=== PATIENT | male | born 1995 | race Caucasian/White ===

== ENCOUNTER 2018-05-04 23:15 | Emergency (ER) | payer OTHER ==
[2018-05-04] MEDS ORDERED: fentaNYL* 50 MCG/ML 2 ML VIAL (100 MCG VIAL) IV SLOW PU ONE (23:29)
[2018-05-04] MEDS ORDERED: NS 0.9% 1000 ML* 1,000 ML IV ONE (23:30)
[2018-05-04] MEDS ORDERED: Metoclopramide IV* 5 MG/ML 2 ML VIAL IV SLOW PU ONE (23:31)
[2018-05-04] MEDS ORDERED: Tetan/Diph/Pertus SYR(Tdap)* 0.5 ML SYR(BOOSTRIX) use SYR IM ONE (23:31)
[2018-05-04] MEDS ORDERED: ceFAZolin 1 GM in Dextrose (*) 1 GM/50 ML BAG IVPB ONE (23:31)
[2018-05-04] MEDS ORDERED: Lidocaine 2% EPI 1:200000 MPF*10-20 ML VIAL ONE (23:49)
[2018-05-05 00:36] LABS: ABS Basophils 0 10^3/ul (0-0.2); ABS Eosinophils 0.3 10^3/ul (0-0.6); ABS Lymphocytes 2.5 10^3/ul (1.0-4.8); ABS Monocytes 0.4 10^3/ul (0-0.8); ABS Neutrophils 5.4 10^3/ul (1.5-7.7); ABS Nucleated RBC 0 10^3/ul; Eosinophil % 3.9 % (0-6); Hematocrit 45 % (42-52); Hemoglobin 14.9 g/dl (14.0-18.0); Lymphocyte % 28.6 % (25-47); Mean Corpuscular HGB Conc 33 g/dl (31-36); Mean Corpuscular Hemoglobin 30 pg (27-31); Mean Corpuscular Volume 91 fL (80-94); Mean Platelet Volume 7.2 um3 (7.4-10.4); Nucleated Red Blood Cells % 0.1; Platelet Count 286 10^3/ul (150-450); Red Cell Distribution Width 13 % (10.5-15); White Blood Count 8.6 10^3/ul (3.5-10.8)
[2018-05-05 00:40] LABS: INR 0.88 (0.77-1.02)
[2018-05-05 00:47] LABS: EGFR Non-African American 91.3 (>60)
[2018-05-05 01:19] VITALS: BP 122/68
--- NOTE | 2018-05-05 01:26 | ED ---
iGfty Lemon Elizabeth, scribed for Rahul Mathis MD on 05/04/18 at 2338 . Laceration/Wound HPI - HPI Summary HPI Summary: This patient is a 22 year old M presenting to [facility] with a chief complaint of pain and laceration in his left axilla since earlier tonight. The patient reports that he fell on a steel fence post. The patient rates the pain 7/10 in severity. Symptoms aggravated by movement. Symptoms alleviated by compression. Patient denies numbness or tingling in his left arm. - History of Current Complaint Stated Complaint: LEFT ARM INJURY Time Seen by Provider: 05/04/18 23:24 Hx Obtained From: Patient Mechanism of Injury: Sharp/Blunt Trauma Onset/Duration: Sudden Onset, Lasting Minutes, Still Present Aggravating: Movement Alleviating: Compression Onset Severity: Moderate Current Severity: Moderate Pain Intensity: 7 Pain Scale Used: 0-10 Numeric Associated Signs & Symptoms: Negative - negative tingling or numbness in left arm - Allergy/Home Medications Allergies/Adverse Reactions: Allergies Allergy/AdvReac Type Severity Reaction Status Date / Time amoxicillin Allergy Hives Verified 05/04/18 23:20 PMH/Surg Hx/FS Hx/Imm Hx Endocrine/Hematology History: Denies: Hx Diabetes Respiratory History: Denies: Hx Chronic Obstructive Pulmonary Disease (COPD) Opthamlomology History: Denies: Hx Legally Blind EENT History: Denies: Hx Deafness Infectious Disease History: No Infectious Disease History: Denies: Traveled Outside the [place] in Last 30 Days - Family History Known Family History: Positive: None Review of Systems Negative: Fever Negative: Epistaxis Negative: Cough Positive: Arthralgia - pain in axilla Skin: Other - laceration to left axilla All Other Systems Reviewed And Are Negative: Yes Physical Exam - Summary Physical Exam Summary: VITAL SIGNS: Reviewed. GENERAL: Patient is a well-developed and nourished MALE who is lying comfortable in the stretcher. Patient is not in any acute respiratory distress. HEAD AND FACE: No signs of trauma. No ecchymosis, hematomas or skull depressions. No sinus tenderness. EYES: PERRLA, EOMI x 2, No injected conjunctiva, no nystagmus. EARS: Hearing grossly intact. Ear canals and tympanic membranes are within normal limits. MOUTH: Oropharynx within normal limits. NECK: Supple, trachea is midline, no adenopathy, no JVD, no carotid bruit, no c- spine tenderness, neck with full ROM. CHEST: Symmetric, no tenderness at palpation LUNGS: Clear to auscultation bilaterally. No wheezing or crackles. CVS: Regular rate and rhythm, S1 and S2 present, no murmurs or gallops appreciated. ABDOMEN: Soft, non-tender. No signs of distention. No rebound no guarding, and no masses palpated. Bowel sounds are normal. EXTREMITIES: FROM in all major joints, no edema, no cyanosis or clubbing. NEURO: Alert and oriented x 3. No acute neurological deficits. Speech is normal and follows commands. Sensory and motor neuro exam intact in LUE, good radial and distal pulses SKIN: Dry and warm, 3 inches wide L-shaped lac over the left axilla, deep to the muscles, minimal to moderate bleeding Triage Information Reviewed: Yes Vital Signs On Initial Exam: Initial Vitals Temp Pulse Resp BP Pulse Ox 97.9 F 114 20 103/73 98 05/04/18 23:19 05/04/18 23:19 05/04/18 23:19 05/04/18 23:19 05/04/18 23:19 Vital Signs Reviewed: Yes Procedures - Procedure Summary Procedure Summary: Laceration repair to left axilla. Prior to procedure sensory and motor neuro exam intact with good radial and distal pulses. No foreign body was seen. 3 inch irregular laceration was closed using 2% Lido with Epi and 2 layers of sutures. The inner layer of 5 sutures was done with polysorb 3-0 and the outer layer of 10 sutures was done with 3-0 prolene. The sutures were dressed with bacitracin and an emory bandage. Sensory and motor neuro exam intact post- procedure. - Laceration/Wound Repair #1 Location: upper extremity - left axilla Description: Irregular Anesthesia: 2.0%, Lido, Epi Length, Depth and Shape: 3 inches Irrigated w/ Saline (ccs): 100 Laceration/Wound Explored: clean, no foreign body removed - nmo foreign Closure: Multilayer - 2 layers (10 sutures inner layer, 5 sutures outer layer) Suture Type: Prolene - 3-0, on outer layer, 10 sutures, Other - polysorb 3-0 on inner layer (5 sutures) Number of Sutures: 10 - 10 outer layer, 5 inner layer Layer Closure?: Yes - bacitracin, emory bandage Sterile Dressing Applied?: Yes Diagnostics - Vital Signs Vital Signs Temp Pulse Resp BP Pulse Ox 05/04/18 23:19 97.9 F 114 20 103/73 98 - Laboratory Result Diagrams: 05/05/18 00:00 05/05/18 00:00 Lab Statement: Any lab studies that have been ordered have been reviewed, and results considered in the medical decision making process. Laceration Repair Course/Dx - Course Course Of Treatment: This patient is a 22 year old M reporting pain and laceration in his left axilla after falling on a fence post earlier today. Prior to laceration repair, sensory and motor neuro exam intact with good radial and distal pulses. No foreign body was seen. 3 inch irregular laceration was closed using 2% Lido with Epi and 2 layers of sutures. The inner layer of 5 sutures was done with polysorb 3-0 and the outer layer of 10 sutures was done with 3-0 prolene. The sutures were dressed with bacitracin and an emory bandage. Sensory and motor neuro exam intact post-procedure. Test results with no significant abnormalities. In the ED course the patient was given fentanyl, IV fluids, Tdap, Kefzol in Dextrose Duplex, and Reglan. Patient will be discharged home with prescription for Keflex and Percocet. The patient is instructed to have his stiches removed in 10 days. The patient is agreeable with this plan. - Clinical Impression Provider Diagnoses: Laceration of axilla, left Discharge - Sign-Out/Discharge Documenting (check all that apply): Discharge/Admit/Transfer - Discharge Plan Condition: Stable Disposition: HOME Discharge Disposition Comment: discharge home Prescriptions: Cephalexin CAP* [Keflex CAP*] 500 mg PO QID #30 cap oxyCODONE/Acetamin 5/325 MG* [Percocet 5/325 TAB*] 1 tab PO Q6H PRN #14 tab MDD 4 PRN Reason: Pain Patient Education Materials: Care For Your Stitches (ED), Laceration (ED) [place] [facility] [facility] [place]] Additional Instructions: [place] [facility] to have your sutures removed in 10 days. If you develop any numbness or weakness in your left arm or develop a fever please return to the emergency department. The documentation as recorded by the scribGifty raya Elizabeth accurately reflects the service I personally performed and the decisions made by me, Rahul Mathis MD.
== END 2018-05-05 01:20 | disposition home or self-care (01) ==
LOC: ED 23:15
DX: S41.112A Laceration without foreign body of left upper arm, initial encounter (principal); W19.XXXA Unspecified fall, initial encounter; Y92.9 Unspecified place or not applicable; Z88.0 Allergy status to penicillin
CPT/HCPCS: 12002; 36415; 80053; 85025; 85610; 85730; 90715; 96374; 96375; 99282; J0690; J2765; J3010

== ENCOUNTER 2018-05-09 15:50 | Emergency (ER) | payer OTHER ==
[2018-05-09 16:14] VITALS: BP 130/85
[2018-05-09 17:07] LABS: ABS Basophils 0 10^3/ul (0-0.2); ABS Eosinophils 0.2 10^3/ul (0-0.6); ABS Lymphocytes 1.3 10^3/ul (1.0-4.8); ABS Monocytes 0.7 10^3/ul (0-0.8); ABS Neutrophils 5.9 10^3/ul (1.5-7.7); ABS Nucleated RBC 0 10^3/ul; Hematocrit 46 % (42-52); Hemoglobin 15.7 g/dl (14.0-18.0); Lymphocyte % 15.7 % (25-47); Mean Corpuscular HGB Conc 34 g/dl (31-36); Mean Corpuscular Hemoglobin 31 pg (27-31); Mean Corpuscular Volume 90 fL (80-94); Mean Platelet Volume 6.8 um3 (7.4-10.4); Nucleated Red Blood Cells % 0; Platelet Count 263 10^3/ul (150-450); Red Blood Count 5.13 10^6/ul (4.00-5.40); Red Cell Distribution Width 13 % (10.5-15); White Blood Count 8.1 10^3/ul (3.5-10.8)
[2018-05-09 17:28] LABS: EGFR Non-African American 91.3 (>60)
--- NOTE | 2018-05-09 18:29 | ED ---
ED Suture/Wound Check - HPI Summary HPI Summary: lac to Lt axill 5 days ago - closed (multiple layers). Fever last night 100.3 - scant drainage. Sore. Feels better today. Taking keflex. 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 Pain Intensity: 0 - Allergies/Home Medications Allergies/Adverse Reactions: Allergies Allergy/AdvReac Type Severity Reaction Status Date / Time amoxicillin Allergy Hives Verified 05/09/18 16:14 PMH/Surg Hx/FS Hx/Imm Hx Endocrine/Hematology History: Denies: Hx Diabetes Respiratory History: Denies: Hx Chronic Obstructive Pulmonary Disease (COPD) Sensory History: Denies: Hx Legally Blind, Hx Deafness Opthamlomology History: Denies: Hx Legally Blind Infectious Disease History: No Infectious Disease History: Denies: Traveled Outside the [place] in Last 30 Days - Family History Known Family History: Positive: None - Social History Alcohol Use: Occasionally Substance Use Type: Reports: None Smoking Status (MU): Never Smoked Tobacco Physical Exam Vital Signs On Initial Exam: Initial Vitals Temp Pulse Resp BP Pulse Ox 98.7 F 110 16 130/85 100 05/09/18 16:08 05/09/18 16:08 05/09/18 16:08 05/09/18 16:08 05/09/18 16:08 Diagnostics - Vital Signs Vital Signs Temp Pulse Resp BP Pulse Ox 05/09/18 16:08 98.7 F 110 16 130/85 100 - Laboratory Lab Results: Lab Results 05/09/18 05/09/18 05/09/18 Range/Units 17:00 17:00 17:00 WBC 8.1 (3.5-10.8) 10^3/ul RBC 5.13 (4.00-5.40) 10^6/ul Hgb 15.7 (14.0-18.0) g/dl Hct 46 (42-52) % MCV 90 (80-94) fL MCH 31 (27-31) pg MCHC 34 (31-36) g/dl RDW 13 (10.5-15) % Plt Count 263 (150-450) 10^3/ul MPV 6.8 L (7.4-10.4) um3 Neut % (Auto) 72.6 (38-83) % Lymph % (Auto) 15.7 L (25-47) % [place] % (Auto) 8.2 H (0-7) % Eos % (Auto) 3.0 (0-6) % Baso % (Auto) 0.5 (0-2) % Absolute Neuts (auto) 5.9 (1.5-7.7) 10^3/ul Absolute Lymphs (auto) 1.3 (1.0-4.8) 10^3/ul Absolute Monos (auto) 0.7 (0-0.8) 10^3/ul Absolute Eos (auto) 0.2 (0-0.6) 10^3/ul Absolute Basos (auto) 0 (0-0.2) 10^3/ul Absolute Nucleated RBC 0 10^3/ul Nucleated RBC % 0 Sodium 138 (135-145) mmol/L Potassium 4.9 (3.5-5.0) mmol/L Chloride 98 L (101-111) mmol/L Carbon Dioxide 33 H (22-32) mmol/L Anion Gap 7 (2-11) mmol/L BUN 20 (6-24) mg/dL Creatinine 1.02 (0.67-1.17) mg/dL Est GFR ( Amer) 110.5 (>60) Est GFR (Non-Af Amer) 91.3 (>60) BUN/Creatinine Ratio 19.6 (8-20) Glucose 115 H (70-100) mg/dL Lactic Acid 2.0 (0.5-2.0) mmol/L Calcium 9.7 (8.6-10.3) mg/dL Total Bilirubin 0.50 (0.2-1.0) mg/dL AST 31 (13-39) U/L ALT 65 H (7-52) U/L Alkaline Phosphatase 75 (34-104) U/L C-Reactive Protein 38.09 H (<8.01) mg/L Total Protein 7.8 (6.4-8.9) g/dL Albumin 4.3 (3.2-5.2) g/dL Globulin 3.5 (2-4) g/dL Albumin/Globulin Ratio 1.2 (1-3) Result Diagrams: 05/09/18 17:00 05/09/18 17:00 Lab Statement: Any lab studies that have been ordered have been reviewed, and results considered in the medical decision making process. Course/Dx - Course Course Of Treatment: Dr. Cantu in to see pt - consult surgery. Dr. Patten will see in clinic tomorrow morning - pt to call at 8:30am. Pt advised to return to ED tonight if worse pain, swelling, fever Discharge - Sign-Out/Discharge Documenting (check all that apply): Patient Departure - Discharge Plan Condition: Stable Disposition: HOME Referrals: Lee Patten MD [Medical Doctor] - Additional Instructions: Call surgical office tomorrow morning at 8:30am for appointment to check wound site for infection. Bring your labs with your from today. *If in the meantime you develop fever, redness, swelling, purulent drainage, arm swelling or worsening of pain, return to ED - Billing Disposition and Condition Condition: STABLE Disposition: Home
== END 2018-05-09 18:34 | disposition home or self-care (01) ==
LOC: ED 15:50
DX: S41.112A Laceration without foreign body of left upper arm, initial encounter (principal); X58.XXXA Exposure to other specified factors, initial encounter; Y92.9 Unspecified place or not applicable; R50.9 Fever, unspecified; Z88.3 Allergy status to other anti-infective agents
CPT/HCPCS: 36415; 80053; 83605; 85025; 86140; 99281